=== PATIENT | male | born 1990 | race Caucasian/White ===

== ENCOUNTER 2017-02-18 10:34 | Emergency (ER) | payer BC ==
[~2017-02-18] VITALS: Ht 175.3 cm; Wt 70.5 kg
[~2017-02-18 10:34] MED LIST: BENZ1 PO; BUSP30TA PO; CITA-48 PO; CLON1 PO; INVE6TAB2 PO; STRA80CA PO; TRAZ100 PO
[2017-02-18 10:36] VITALS: BP 130/84; PULSE 106; RESP 16; TEMP 98; O2SAT 100
[2017-02-18 10:45] VITALS: BP 139/83; PULSE 91; RESP 17; O2SAT 99
[2017-02-18] MEDS ORDERED: SERO400T PO (10:53)
[2017-02-18] MEDS ORDERED: CLON1TAB PO (10:53)
[2017-02-18] MEDS ORDERED: BUSP30TA PO (10:53)
[2017-02-18] MEDS ORDERED: LUVOX (10:53)
--- NOTE | 2017-02-18 11:03 | PD ---
HPI Chief Complaint: Suicide Ideation/Attempt Time Seen by Provider: 10:40 Travel History International Travel<30 days: No Contact w/Intl Traveler<30days: No Traveled to known affect area: No History of Present Illness HPI The 26-year-old man who presents to the emergency department with increased depression and suicidal thoughts starting this morning. Headache fight with his dad apparently that sorted sugar everything. He may have also missed a dose of medicine last night. Patient is tearful and sad. Endorses suicidal thoughts but does state "I would never do that". Medical history significant for schizoaffective disorder and OCD as well as multiple psychotropic medications. No somatic complaints. Denies any recent illness or injury. History Past Medical History Narrative Medical Hypertension Arthritis Influenza Vaccination: No Social History Alcohol Use: No Tobacco Use: Yes (1 PPD) Allergies-Medications (Allergen,Severity, Reaction): Coded Allergies: No Known Allergies (Unverified , 05/05/16) Per pt. Reported Meds & Prescriptions Reported Meds & Active Scripts Active Reported Clonazepam 1 Mg Tab 1 Mg PO BID Seroquel (Quetiapine Fumarate) 400 Mg Tab 800 Mg PO HS [Luvox] 300 DAILY Buspirone (Buspirone HCl) 30 Mg Tab 30 Mg PO BID Review of Systems Except as stated in HPI: all other systems reviewed are Neg Physical Exam Narrative GENERAL: Well-appearing 26-year-old man, tearful and sad.. SKIN: Focused skin assessment warm/dry. HEAD: Atraumatic. Normocephalic. CARDIOVASCULAR: Regular rate and rhythm. No murmur appreciated. RESPIRATORY: No accessory muscle use. Clear to auscultation. Breath sounds equal bilaterally. GASTROINTESTINAL: Abdomen soft, non-tender, nondistended. Hepatic and splenic margins not palpable. MUSCULOSKELETAL: No obvious deformities. No clubbing. No cyanosis. No edema. NEUROLOGICAL: Awake and alert. No obvious cranial nerve deficits. Motor grossly within normal limits. Normal speech. PSYCHIATRIC: Tearful and sad. He endorses some suicidal thoughts. Data Data Last Documented VS Vital Signs Date Time Temp Pulse Resp B/P Pulse Ox O2 Delivery O2 Flow Rate FiO2 02/18/17 10:45 91 17 139/83 99 Room Air 02/18/17 10:36 98.0 Orders Complete Blood Count With Diff (02/18/17 10:56) Comprehensive Metabolic Panel (02/18/17 10:56) Psych Screen (02/18/17 10:56) Drug Screen, Random Urine (02/18/17 10:56) MDM Medical Decision Making Medical Screen Exam Complete: Yes Emergency Medical Condition: Yes Differential Diagnosis Stress reaction, adjustment disorder, schizoaffective disorder, other Narrative Course Medical decision making 26 old man presents emergency department complaining of increased depression and suicidal thoughts, history of schizoaffective disorder and OCD. He has no somatic complaints. No recent illness or injury. Patient is medically clear for psychiatric evaluation. Mental health screening discussed with the patient. Psychiatric screen ordered. Marco Calderon MD Feb 18, 2017 11:03
[2017-02-18 11:30] LABS: AUTOMATED NEUTROPHIL # 4.9 TH/MM3 (1.8-7.7); BASOPHIL % 0.4 % (0.0-2.0); EOSINOPHIL # 0.2 TH/MM3 (0-0.4); EOSINOPHIL % 2.1 % (0.0-4.0); HEMATOCRIT 50.3 % (39.0-51.0); HEMO FLAGS DIFF FINAL; LYMPH % 22.9 % (9.0-44.0); LYMPHOCYTE # 1.7 TH/MM3 (1.0-4.8); MEAN CELL VOLUME 90.4 FL (80.0-100.0); MEAN CORPUSCULAR HGB CONC 34.3 % (32.0-36.0); MONO % 8.6 % (0.0-8.0); PLATELET COUNT 174 TH/MM3 (150-450); RED BLOOD COUNT 5.56 MIL/MM3 (4.50-5.90); RED CELL DISTRIBUTION WIDTH 13.1 % (11.6-17.2); WHITE BLOOD COUNT 7.4 TH/MM3 (4.0-11.0)
[2017-02-18 11:42] LABS: AMPHETAMINE, URINE NEG (NEG); BARBITURATES, URINE NEG (NEG); COCAINE, URINE NEG (NEG)
[2017-02-18 11:51] LABS: ALT (GPT) 23 U/L (12-78); ANION GAP 6 MEQ/L (5-15); AST (GOT) 10 U/L (15-37); BICARBONATE 26.5 MEQ/L (21.0-32.0); BLOOD UREA NITROGEN 15 MG/DL (7-18); CHLORIDE 107 MEQ/L (98-107); GLOMERULAR FILTRATION RATE 82 ML/MIN (>89); POTASSIUM 4.2 MEQ/L (3.5-5.1); SODIUM (NA) 139 MEQ/L (136-145)
[2017-02-18 11:53] LABS: ALKALINE PHOSPHATASE 73 U/L (45-117); TOTAL BILIRUBIN ADULT 0.5 MG/DL (0.2-1.0)
[2017-02-18 14:21] VITALS: BP 116/67; PULSE 63; RESP 18; O2SAT 98
[2017-02-18] MEDS ORDERED: FLUV1CAP PO (14:34)
[2017-02-18 17:58] VITALS: BP 136/69; PULSE 68; RESP 18
--- NOTE | 2017-02-18 20:08 | PD ---
History of Present Illness Chief Complaint: Suicide Ideation/Attempt Time Seen by Provider: 17:15 Travel History International Travel<30 Days: No Contact w/Intl Traveler<30days: No Known affected area: No Legal Status Legal Status: Voluntary History of Present Illness: History of Present Illness HPI The 26-year-old male with a reported history of OCD and schizoaffective disorder who presents to the emergency department on a voluntary status with complaints of increased depression and suicidal thoughts starting this morning. He reports that he missed a dose of his nighttime medications which include Seroquel because he did not have enough money to pay for them. He asked his father to help him get his medications and during the argument he said " Fuck You" and allegedly stated that he was suicidal. The patient denies that he is feeling suicidal and is requesting to be discharged. Since being here he has had telephone contact with his father who has given him the money for his medications as well as has apologized to him according to the patient. The patient is alert and oriented. Speech is clear ,logical and coherent. He denies any hallucinations, denies any suicidal or homicidal ideation. He reports medication compliance. PFSH Past Medical History Anxiety: Yes Depression: Yes Psychiatric: Yes (OCD) Immunizations Current: Yes Schizophrenia: Yes Influenza Vaccination: No Past Surgical History Other Surgery: Yes (right second toe broken) Psychiatric History Psychiatric History Hx Psychiatric Treatment: Per pt, he is seeing someone named with [facility]. First hospitalization at age 16 years History of Inpatient Treatment: Yes Guns or firearms in home: No Social History Single male. Lives with his father.parents are . Works at [employer] at [employer] Hx Alcohol Use: No Hx Tobacco Use: Yes (1 PPD) Hx Substance Use: No (Pt denies.) Hx of Substance Use Treatment: No Family Psychiatric History Negative Allergies-Medications (Allergen,Severity, Reaction): Coded Allergies: No Known Allergies (Unverified , 02/18/17) Per pt; Per [facility] [phone] Reported Meds & Prescriptions Reported Meds & Active Scripts Active Reported Fluvoxamine ER (Fluvoxamine Maleate) 100 Mg Caper 300 Mg PO DAILY Clonazepam 1 Mg Tab 1 Mg PO BID Seroquel (Quetiapine Fumarate) 400 Mg Tab 800 Mg PO HS Buspirone (Buspirone HCl) 30 Mg Tab 30 Mg PO BID Review of Systems Except as stated in HPI: all other systems reviewed are Neg Exam Alert: Yes [place]: Person (ox4) Mood: Calm Affect: Appropriate Speech: Clear, Logical Eye Contact: Normal Memory Intact: Comment (No impairemtn) Hallucinations: Other (Negative) Delusions: No Suicidal: Ideation (Deneis any) Homicidal: Ideation (Deneis any) Insight/Judgement Fair. Not impaired. MDM Medical Decision Making Medical Record Reviewed: Yes Assessment/Plan The 26-year-old male with a reported history of OCD and schizoaffective disorder who presents to the emergency department on a voluntary status with complaints of increased depression and suicidal thoughts starting this morning. He attributes to having missed a dose of nighttime medication. He also attributes to being angry with his father over a comment his father made. Since being here he has contacted his father and his mother and feels safe to be discharged home. he is denying any suicidal intent or homicidal intent. He does feel anxious about going to work tomorrow and i will provide him with an excuse fro tomorrowthat will give him time to get back on his medication before he returns to work. Psychoeducation provided. Cleared for discharge Orders Complete Blood Count With Diff (02/18/17 10:56) Comprehensive Metabolic Panel (02/18/17 10:56) Psych Screen (02/18/17 10:56) Drug Screen, Random Urine (02/18/17 10:56) Diet Regular Basic (02/18/17 Lunch) Results Vital Signs Date Time Temp Pulse Resp B/P Pulse Ox O2 Delivery O2 Flow Rate FiO2 02/18/17 17:58 68 18 136/69 Room Air 02/18/17 14:21 63 18 116/67 98 Room Air 02/18/17 10:45 91 17 139/83 99 Room Air 02/18/17 10:36 98.0 106 16 130/84 100 Laboratory Tests Test 02/18/17 11:06 White Blood Count 7.4 Red Blood Count 5.56 Hemoglobin 17.2 Hematocrit 50.3 Mean Corpuscular Volume 90.4 Mean Corpuscular Hemoglobin 31.0 Mean Corpuscular Hemoglobin 34.3 Concent Red Cell Distribution Width 13.1 Platelet Count 174 Mean Platelet Volume 8.5 Neutrophils (%) (Auto) 66.0 Lymphocytes (%) (Auto) 22.9 Monocytes (%) (Auto) 8.6 Eosinophils (%) (Auto) 2.1 Basophils (%) (Auto) 0.4 Neutrophils # (Auto) 4.9 Lymphocytes # (Auto) 1.7 Monocytes # (Auto) 0.6 Eosinophils # (Auto) 0.2 Basophils # (Auto) 0.0 CBC Comment DIFF FINAL Differential Comment Sodium Level 139 Potassium Level 4.2 Chloride Level 107 Carbon Dioxide Level 26.5 Anion Gap 6 Blood Urea Nitrogen 15 Creatinine 1.10 Estimat Glomerular Filtration 82 Rate Random Glucose 104 Calcium Level 9.0 Total Bilirubin 0.5 Aspartate Amino Transf 10 (AST/SGOT) Alanine Aminotransferase 23 (ALT/SGPT) Alkaline Phosphatase 73 Total Protein 7.6 Albumin 4.2 Urine Opiates Screen NEG Urine Barbiturates Screen NEG Urine Amphetamines Screen NEG Urine Benzodiazepines Screen NEG Urine Cocaine Screen NEG Urine Cannabinoids Screen NEG Diagnosis Primary Impression: Adjustment disorder Departure Forms: Work Release, Enter return to work date: Feb 20, 2017 Tests/Procedures Patient Instructions: General Instructions, Stress (ED), Medical Clearance for Psychiatric Care (ED) Additional Instructions: Follow up with outpatient primary care provider. Follow up with outpatient psychiatric provider. Return to ER if symptoms worsen. Med/ Other Pt Specific Info: No Change to Meds Disposition: 01 DISCHARGE HOME Condition: Stable Problem Qualifiers Primary Impression: Adjustment disorder Qualified Code: F43.23 - Adjustment disorder with mixed anxiety and depressed mood Debbie Rodriguez Feb 18, 2017 20:08
== END 2017-02-18 18:46 | disposition home or self-care (01) ==
LOC: NEPE 10:34 → NEPJ 18:46
DX: F43.20 Adjustment disorder, unspecified (principal); F42.9 Obsessive-compulsive disorder, unspecified; F25.9 Schizoaffective disorder, unspecified; F41.9 Anxiety disorder, unspecified; I10 Essential (primary) hypertension; M13.88 Other specified arthritis, other site; F17.200 Nicotine dependence, unspecified, uncomplicated; Z79.899 Other long term (current) drug therapy
CPT/HCPCS: 80053; 80307; 85025; 99284

== ENCOUNTER 2017-11-21 22:44 | Inpatient (IN) | payer BC ==
[~2017-11-21] VITALS: Ht 175.3 cm; Wt 67.9 kg
[~2017-11-21 22:44] MED LIST changes: -BENZ1 PO; -CITA-48 PO; -CLON1 PO; +CLON1TAB PO; +FLUV1CAP PO; -INVE6TAB2 PO; +SERO400T PO; -STRA80CA PO; -TRAZ100 PO
[2017-11-21 22:48] VITALS: BP 124/74; PULSE 81; RESP 18; TEMP 97.7; O2SAT 98
--- NOTE | 2017-11-22 00:38 | PD ---
HPI Chief Complaint: Suicide Ideation/Attempt Time Seen by Provider: 00:17 Travel History International Travel<30 days: No Contact w/Intl Traveler<30days: No Traveled to known affect area: No History of Present Illness HPI 27-year-old white male presents emergency department on a voluntary basis for psychological evaluation. He states that he has OCD and depression. Patient states that he merely needs to get some rest and sleep. He left work early today after having an argument with his girlfriend. He has an appointment tomorrow with his psychiatrist. Patient states that he merely needs rest. He denies suicidal homicidal ideation. A discussion with the nursing staff informs me that when he had presented to the ER he had informed the triage nurse that he was depressed and contemplating suicide. He had placed a noose around his neck and had planned on hanging himself. On direct questioning the patient does admit to this. He denies any toxic ingestions. He had recently changed psychiatrists is now seeing a new psychiatrist in [place]. Patient denies any recent medical complaints other than inability to sleep. Patient denies any drugs or alcohol. PFSH Past Medical History Narrative Medical OCD, anxiety, depression Anxiety: Yes Depression: Yes Diminished Hearing: No Psychiatric: Yes (OCD) Immunizations Current: Yes Schizophrenia: Yes Tetanus Vaccination: Unknown Influenza Vaccination: No Past Surgical History Other Surgery: Yes (right second toe broken) Social History Alcohol Use: No Tobacco Use: Yes (1 PPD) Substance Use: No (Pt denies.) Allergies-Medications (Allergen,Severity, Reaction): Coded Allergies: No Known Allergies (Unverified , 02/18/17) Per pt; Per [facility] [phone] Reported Meds & Prescriptions Reported Meds & Active Scripts Active Reported Fluvoxamine ER (Fluvoxamine Maleate) 100 Mg Caper 300 Mg PO DAILY Clonazepam 1 Mg Tab 1 Mg PO BID Seroquel (Quetiapine Fumarate) 400 Mg Tab 800 Mg PO HS Buspirone (Buspirone HCl) 30 Mg Tab 30 Mg PO BID Review of Systems General / Constitutional: No: Fever Eyes: No: Visual changes HENT: No: Headaches Cardiovascular: No: Chest Pain or Discomfort Respiratory: No: Shortness of Breath Gastrointestinal: No: Abdominal Pain Genitourinary: No: Dysuria Musculoskeletal: No: Pain Skin: No Rash Neurologic: No: Weakness Psychiatric: Positive: Depression, Suicidal Ideations, Mood Disorder, No: Anxiety, Disorder of Thought, Substance Abuse, Homicidal Ideation Endocrine: No: Polydipsia Hematologic/Lymphatic: No: Easy Bruising Physical Exam Narrative GENERAL: Well-nourished, well-developed patient. SKIN: Warm and dry. HEAD: Normocephalic and atraumatic. EYES: No scleral icterus. No injection or drainage. ENT: No nasal drainage noted. Mucous membranes pink. Airway patent. NECK: Supple, trachea midline. Moves head freely without obvious discomfort. CARDIOVASCULAR: Regular rate and rhythm without murmurs, gallops, or rubs. RESPIRATORY: Breath sounds equal bilaterally. No accessory muscle use. GASTROINTESTINAL: Abdomen soft, non-tender, nondistended. EXTREMITIES: No cyanosis or edema. BACK: Nontender without obvious deformity. No CVA tenderness. NEURO: Patient is alert and oriented. no sensorimotor deficits. Nonfocal. Normal speech. PSYCH: No delusions. No auditory or visual hallucinations. Data Data Last Documented VS Vital Signs Date Time Temp Pulse Resp B/P (MAP) Pulse Ox O2 Delivery O2 Flow Rate FiO2 11/21/17 22:48 97.7 81 18 124/74 (91) 98 Orders Orders Complete Blood Count With Diff (11/22/17 00:30) Comprehensive Metabolic Panel (11/22/17 00:30) Thyroid Stimulating Hormone (11/22/17 00:30) Psych Screen (11/22/17 00:30) Drug Screen, Random Urine (11/22/17 00:30) Alcohol (Ethanol) (11/22/17 00:30) Salicylates (Aspirin) (11/22/17 00:30) Tylenol (Acetaminophen) (11/22/17 00:30) MDM Medical Decision Making Medical Screen Exam Complete: Yes Emergency Medical Condition: Yes Medical Record Reviewed: Yes Differential Diagnosis MDM: High Differential diagnoses: Schizophrenia, schizoaffective disorder, bipolar, anxiety, depression, adjustment reaction, mood disorder NOS, ODD, depressive disorder NOS, dementia, dementia with agitation, psychosis NOS, substance induced mood disorder, DMDD, Asperger syndrome, infection,electrolyte abnormality, malingering. Narrative Course Mental health screening discussed with the patient. Psychiatric screen ordered. The patient is unable to determine his need for psychiatric evaluation. The patient has been placed under a [place] act due to his initial complaint of depression and thoughts of hanging himself. The patient has been medically cleared. This medical clearance for psychiatric admission Diagnosis Primary Impression: Medical clearance for psychiatric admission Condition: Stable Alex Walker November 22, 2017 00:38
[2017-11-22 01:04] LABS: AUTOMATED NEUTROPHIL # 5.2 TH/MM3 (1.8-7.7); BASOPHIL # 0.1 TH/MM3 (0-0.2); BASOPHIL % 0.7 % (0.0-2.0); EOSINOPHIL # 0.1 TH/MM3 (0-0.4); EOSINOPHIL % 1.6 % (0.0-4.0); HEMATOCRIT 46.3 % (39.0-51.0); HEMOGLOBIN 15.9 GM/DL (13.0-17.0); LYMPH % 24.6 % (9.0-44.0); MEAN CELL VOLUME 91.9 FL (80.0-100.0); MEAN CORPUSCULAR HEMOGLOBIN 31.5 PG (27.0-34.0); MEAN CORPUSCULAR HGB CONC 34.3 % (32.0-36.0); MEAN PLATELET VOLUME 8.5 FL (7.0-11.0); MONO % 8.1 % (0.0-8.0); MONOCYTE # 0.7 TH/MM3 (0-0.9); PLATELET COUNT 196 TH/MM3 (150-450); RED BLOOD COUNT 5.03 MIL/MM3 (4.50-5.90); RED CELL DISTRIBUTION WIDTH 13.7 % (11.6-17.2); WHITE BLOOD COUNT 8.1 TH/MM3 (4.0-11.0)
[2017-11-22 01:11] LABS: ALBUMIN 3.7 GM/DL (3.4-5.0); ALT (GPT) 27 U/L (12-78); AST (GOT) 16 U/L (15-37); BICARBONATE 28.1 MEQ/L (21.0-32.0); BLOOD UREA NITROGEN 10 MG/DL (7-18); CALCIUM 8.4 MG/DL (8.5-10.1); CHLORIDE 107 MEQ/L (98-107); GLOMERULAR FILTRATION RATE 103 ML/MIN (>89); GLUCOSE,RANDOM 83 MG/DL (74-106); SODIUM (NA) 141 MEQ/L (136-145)
[2017-11-22 01:21] LABS: ACETAMINOPHEN LESS THAN 2.0 MCG/ML (10.0-30.0); ALKALINE PHOSPHATASE 62 U/L (45-117); TOTAL BILIRUBIN ADULT 0.5 MG/DL (0.2-1.0); TOTAL PROTEIN 6.5 GM/DL (6.4-8.2)
[2017-11-22 03:22] VITALS: BP 112/72; PULSE 52; RESP 16; O2SAT 99
[2017-11-22] MEDS ORDERED: LORazepam 0.5 MG TAB PO PRN (08:45)
[2017-11-22] MEDS ORDERED: ACETAMINOPHEN 325 MG TAB PO PRN (08:45)
[2017-11-22] MEDS ORDERED: LORazepam 2 MG/ML VIAL IM PRN ×2 (08:45)
[2017-11-22] MEDS ORDERED: ALUMINUM/MAGNESIUM/SIMETH 30 ML CUP PO PRN (08:45)
[2017-11-22] MEDS ORDERED: MAGNESIUM HYDROXIDE SUSP 30 ML CUP PO PRN (08:45)
[2017-11-22 10:17] VITALS: BP 112/62; PULSE 76; RESP 18; TEMP 97.8; O2SAT 96
[2017-11-22] MEDS: NICOTINE 21 MG/24 HR PATCH T-DERMAL SCH (11:50)
--- NOTE | 2017-11-22 12:38 | HHI.HP ---
Provisional Diagnosis Admission Date November 22, 2017 at 08:49 [place] I. OCD, schizoaffective disorder depressive type [place] II. Deferred [place] III. No significant medical history [place] IV. Interpersonal conflicts [place] V. 45 Certification of Person's Competence To Provide Express and Informed Consent I have personally examined Lizandro Hernandez , a person being served at [facility] on, November 22, 2017 12:23. Express and informed consent means consent voluntarily given in writing, by a competent person, after sufficient explanation and disclosure of the subject matter involved to enable the person to make a knowing and willful decision without any element of force, fraud, deceit, duress, or other form of constraint or coercion. This person is 18 years of age or older, is not now known to be incompetent to consent to treatment with a guardian advocate, and does not have a health care surrogate or proxy currently making medical treatment decisions. I have found this person to be one of the following: [] Competent to provide express and informed consent, as defined above, for voluntary admission to this facility and is competent to provide express and informed consent for treatment. He/she has the consistent capacity to make well reasoned, willful, and knowing decisions concerning his or her medical or mental health treatment. The person fully and consistently understands the purpose of the admission for examination/placement and is fully capable of personally exercising all rights assured under [place] Incompetent to provide express and informed consent to voluntary admission, and this is incompetent to provide express and informed consent to treatment. The person must be transferred to involuntary status and a petition for a guardian advocate filed with the Circuit Court. [x] Refusing to provide express and informed consent to voluntary admission but is competent to provide express and informed consent for treatment. The person must be discharged or transferred to involuntary status. Form shall be completed within 24 hours of a person's arrival at the receiving facility and filed in the clinical record of each person: 1. Admitted on a voluntary basis 2. Permitted to provide express and informed consent to his/her own treatment 3. Allowed to transfer from involuntary to voluntary status 4. Prior to permitting a person to consent to his or her own treatment after having been previously found incompetent to consent to treatment. History of Present Illness Capacity: Has Capacity HPI The patient is a 27-year-old man, domiciled in [place] with his father and stepmother, is single, employed in [employer], with an extensive psychiatric history of OCD, bipolar disorder, depression, 6-7 hospitalizations, last hospitalization was about 3 years ago here at [facility], documentation was reviewed, he has some ER visits since then, he is on Anafranil 225 mg, Geodon 60 mg, clonazepam 1 mg 3 times daily, no significant medical history, presents emergency department on a voluntary basis for psychological evaluation. He states that he has OCD and depression. Patient states that he merely needs to get some rest and sleep. He left work early today after having an argument with his girlfriend. He has an appointment tomorrow with his psychiatrist. Patient states that he merely needs rest. He denies suicidal homicidal ideation. A discussion with the nursing staff informs me that when he had presented to the ER he had informed the triage nurse that he was depressed and contemplating suicide. He had placed a noose around his neck and had planned on hanging himself. On direct questioning the patient does admit to this. He denies any toxic ingestions. He had recently changed psychiatrists is now seeing a new psychiatrist in [place]. On psychiatric evaluation today patient is calm and cooperative. Patient reports that he has been feeling very depressed since he had an argument with his girlfriend and his girlfriend left him. Patient says that he feels like a failure, has been feeling guilty, very stressed, and having intrusive thoughts of hanging himself. The patient reports that he has a "harm OCD" and when images and thoughts come to his mind, he is unable to stop them. He states that since yesterday he has been having the image of harming himself or throwing himself in front of a car.. Patient reports that he does not want to , that he does not have any suicidal ideation or intentions "but, I am very afraid of my thoughts, and I am a very excessive person". Patient reports that he is fully compliant with medications , reports good response and no side effects. Patient seems to be quite preoccupied about restarting his clonazepam. He denies the use of illegal drugs and alcohol. Review of Systems Constitutional: DENIES: Diaphoretic episodes, Fatigue, Fever, Weight gain, Weight loss, Chills, Dizziness, Change in appetite, Night Sweats Endocrine: DENIES: Heat/cold intolerance, Polydipsia, Polyuria, Polyphagia Eyes: DENIES: Blurred vision, Diplopia, Eye inflammation, Eye pain, Vision loss , Photosensitivity, Double Vision Ears, nose, mouth, throat: DENIES: Tinnitus, Hearing loss, Vertigo, Nasal discharge, Oral lesions, Throat pain, Hoarseness, Ear Pain, Running Nose, Epistaxis, Sinus Pain, Toothache, Odynophagia Respiratory: DENIES: Apneas, Cough, Snoring, Wheezing, Hemoptysis, Sputum production, Shortness of breath Cardiovascular: DENIES: Chest pain, Palpitations, Syncope, Dyspnea on Exertion , PND, Lower Extremity Edema, Orthopnea, Claudication Gastrointestinal: DENIES: Abdominal pain, Black stools, Bloody stools, Constipation, Diarrhea, Nausea, Vomiting, Difficulty Swallowing, Anorexia Genitourinary: DENIES: Sexual dysfunction, Urinary frequency, Urinary incontinence, Urgency, Hematuria, Dysuria, Nocturia, Penile Discharge, Testicular Pain, Testicular Swelling Musculoskeletal: DENIES: Joint pain, Muscle aches, Stiffness, Joint Swelling, Back pain, Neck pain Integumentary: DENIES: Abnormal pigmentation, Nail changes, Pruritus, Rash Hematologic/lymphatic: DENIES: Bruising, Lymphadenopathy Immunologic/allergic: DENIES: Eczema, Urticaria Neurologic: DENIES: Abnormal gait, Headache, Localized weakness, Paresthesias, Seizures, Speech Problems, Tremor, Poor Balance Psychiatric: COMPLAINS OF: Anxiety, Depression, Suicidal Ideation Past Psych History Violence risk - self (6 mos) Increased Substance Abuse History Drugs/Alcohol past 12 months Patient denies the use of alcohol and illegal drugs Past Family Social History Coded Allergies: No Known Allergies (Unverified Allergy, Unknown, 11/22/17) Per pt; Per [facility] [phone] Discontinued Reported Medications Fluvoxamine ER (Fluvoxamine ER) 100 Mg Caper, 300 MG PO DAILY, CAP 0 Refills 02/18/17 Clonazepam (Clonazepam) 1 Mg Tab, 1 MG PO BID, TAB 0 Refills 02/18/17 Quetiapine (Seroquel) 400 Mg Tab, 800 MG PO HS, TAB 0 Refills 02/18/17 Buspirone (Buspirone) 30 Mg Tab, 30 MG PO BID for Anxiety, TAB 0 Refills 02/18/17 Current Medications Medications (Trade) Dose Ordered Sig/Morgan Route Start Time Stop Time Status Last Admin (Ativan) 1 mg Q6H PRN PO 11/22/17 08:45 (Ativan Inj) 1 mg Q6H PRN IM 11/22/17 08:45 (Tylenol) 650 mg Q4H PRN PO 11/22/17 08:45 (Milk Of Magnesia Liq) 30 ml DAILY PRN PO 11/22/17 08:45 (Mag-Al Plus Susp Liq) 30 ml Q6H PRN PO 11/22/17 08:45 (Habitrol 21 Mg Patch.24 Hr) 1 patch DAILY T-DERMAL 11/22/17 09:00 11/22/17 11:50 Miscellaneous Information 1 HS T-DERMAL 11/22/17 21:00 Family Psych History Grandfather is a schizophrenic Social History Patient was born and raised in 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 Patient's Strengths (min. 2) Family support, outpatient psychiatric Physical Exam Patient has no tremors, no withdrawal symptoms, no EPS, no stiffness, no psychomotor agitation or retardation, no gait disturbance Vital Signs Vital Signs Date Time Temp Pulse Resp B/P (MAP) Pulse Ox O2 Delivery O2 Flow Rate FiO2 11/22/17 10:17 97.8 76 18 112/62 (79) 96 11/22/17 03:22 Room Air Lab Results Test 11/22/17 00:30 11/22/17 07:50 White Blood Count 8.1 TH/MM3 Red Blood Count 5.03 MIL/MM3 Hemoglobin 15.9 GM/DL Hematocrit 46.3 % Mean Corpuscular Volume 91.9 FL Mean Corpuscular Hemoglobin 31.5 PG Mean Corpuscular Hemoglobin Concent 34.3 % Red Cell Distribution Width 13.7 % Platelet Count 196 TH/MM3 Mean Platelet Volume 8.5 FL Neutrophils (%) (Auto) 65.0 % Lymphocytes (%) (Auto) 24.6 % Monocytes (%) (Auto) 8.1 % Eosinophils (%) (Auto) 1.6 % Basophils (%) (Auto) 0.7 % Neutrophils # (Auto) 5.2 TH/MM3 Lymphocytes # (Auto) 2.0 TH/MM3 Monocytes # (Auto) 0.7 TH/MM3 Eosinophils # (Auto) 0.1 TH/MM3 Basophils # (Auto) 0.1 TH/MM3 CBC Comment DIFF FINAL Differential Comment Blood Urea Nitrogen 10 MG/DL Creatinine 0.90 MG/DL Random Glucose 83 MG/DL Total Protein 6.5 GM/DL Albumin 3.7 GM/DL Calcium Level 8.4 MG/DL Alkaline Phosphatase 62 U/L Aspartate Amino Transf (AST/SGOT) 16 U/L Alanine Aminotransferase (ALT/SGPT) 27 U/L Total Bilirubin 0.5 MG/DL Sodium Level 141 MEQ/L Potassium Level 4.1 MEQ/L Chloride Level 107 MEQ/L Carbon Dioxide Level 28.1 MEQ/L Anion Gap 6 MEQ/L Estimat Glomerular Filtration Rate 103 ML/MIN Thyroid Stimulating Hormone 3rd Gen 1.310 uIU/ML Salicylates Level 1.8 MG/DL Acetaminophen Level LESS THAN 2.0 MCG/ML Ethyl Alcohol Level LESS THAN 3 MG/DL Urine Opiates Screen NEG Urine Barbiturates Screen NEG Urine Amphetamines Screen NEG Urine Benzodiazepines Screen NEG Urine Cocaine Screen NEG Urine Cannabinoids Screen NEG Mental Status Examination Appearance: Appropriate Consciousness: Alert Orientation: x4 Motor Activity: Normal gait Speech: Unremarkable Language: Adequate Fund of Knowledge: Adequate Attention and Concentration: Adequate Memory: Unremarkable Mood: Sad, Irritable Thought Process & Associations: Intact Thought Content: Appropriate, Obsessions Hallucination Type: None Delusion Type: None Suicidal Ideation: Yes Suicidal Plan: No Suicidal Intention: No Homicidal Ideation: No Homicidal Plan: No Homicidal Intention: No Insight: Poor Judgment: Poor Assessment & Plan Problem List: (1) Schizoaffective disorder ICD Codes: F25.9 - Schizoaffective disorder, unspecified Status: Acute Assessment & Plan: On psychiatric evaluation today the patient presents emotionally vulnerable, he reports symptomatology of depression consisting on sadness, guiltiness, poor sleep, constant preoccupations, intrusive thoughts of committing suicide after he broke up with his girlfriend. The patient has stated his arrival to the ER that he was having ideas of hanging himself. Now he denies active suicidal ideation, but he does report that he has intrusive thoughts of hanging or throwing himself in front of a car. Patient has an extensive history of OCD, schizoaffective disorder, multiple psychiatric hospitalizations, suicide attempts. Patient has an increased risk of danger to self. He will be hospitalized in psychiatry for stabilization and safety. I will restart his psychotropics including Anafranil 225 mg, clonazepam 0.5 mg twice daily, Geodon 40 mg twice daily. Collateral information from family members still needed to complete psychiatric assessment. Current presentation seems to be secondary to major depressive disorder, but an underlying personality disorder and also conscious simulation she will be explored carefully. Extensive support, motivation and psychoeducation provided. Transfer patient to 2600 unit. Assessment & Plan Estimated LOS: days Problem Qualifiers (1) Schizoaffective disorder: Qualified Codes: F25.1 - Schizoaffective disorder, depressive type Herman Cardenas MD November 22, 2017 12:38
[2017-11-22] MEDS: LORazepam 1 MG TAB PO PRN (12:56)
[2017-11-22] MEDS: clonazePAM 0.5 MG TAB PO SCH ×2 (14:16→21:26)
[2017-11-22] MEDS: ZIPRASIDONE HCL 40 MG CAP PO SCH (17:48)
[2017-11-22 18:14] VITALS: BP 105/66; PULSE 88; RESP 18; TEMP 97.8; O2SAT 95
[2017-11-22] MEDS: REMOVE OLD NICODERM (NICOTINE) PATCH T-DERMAL SCH (21:00)
[2017-11-23] MEDS: LORazepam 1 MG TAB PO PRN ×2 (02:10→09:04)
[2017-11-23] MEDS: clonazePAM 0.5 MG TAB PO SCH ×3 (05:21→21:49)
[2017-11-23 05:35] VITALS: BP 129/66; PULSE 57; RESP 16; TEMP 97.8; O2SAT 98
[2017-11-23] MEDS: NICOTINE 21 MG/24 HR PATCH T-DERMAL SCH (08:14)
[2017-11-23] MEDS: ZIPRASIDONE HCL 40 MG CAP PO SCH ×2 (08:15→17:02)
[2017-11-23 08:50] LABS: BICARBONATE 32.2 MEQ/L (21.0-32.0); BLOOD UREA NITROGEN 13 MG/DL (7-18); CALCIUM 9.6 MG/DL (8.5-10.1); CHLORIDE 102 MEQ/L (98-107); CHOLESTEROL 127 MG/DL (120-200); CHOLESTEROL/ HDL RATIO 2.16 RATIO; CREATININE 1.01 MG/DL (0.60-1.30); GLOMERULAR FILTRATION RATE 90 ML/MIN (>89); GLUCOSE,RANDOM 84 MG/DL (74-106); HDL CHOLESTEROL 58.6 MG/DL (40.0-60.0); LDL CHOLESTEROL 22 MG/DL (0-99); SODIUM (NA) 140 MEQ/L (136-145); TRIGLYCERIDES 232 MG/DL (42-150)
[2017-11-23] MEDS ORDERED: PILL SPLITTER OTHER PRN (15:00)
[2017-11-23] MEDS: busPIRone HCL 5 MG TAB PO SCH ×2 (15:03→21:14)
[2017-11-23 17:02] VITALS: BP 98/58; PULSE 106; RESP 17; TEMP 97.2; O2SAT 99
--- NOTE | 2017-11-23 17:23 | PD.PSY.CON ---
Provisional Diagnosis Admission Date November 22, 2017 at 08:49 [place] I. OCD, schizoaffective disorder depressive type [place] II. Deferred [place] III. No significant medical history [place] IV. Interpersonal conflicts [place] V. 45 History of Present Illness Service Psychiatry Consult Requested By Dr. Cardenas Reason for Consult Second opinion Primary Care Physician No Primary Care Physician HPI The patient is a 27-year-old man, domiciled in [place] with his father and stepmother, is single, employed in [employer], with an extensive psychiatric history of OCD, bipolar disorder, depression, 6-7 hospitalizations, last hospitalization was about 3 years ago here at [facility], documentation was reviewed, he has some ER visits since then, he is on Anafranil 225 mg, Geodon 60 mg, clonazepam 1 mg 3 times daily, no significant medical history, presents emergency department on a voluntary basis for psychological evaluation. He states that he has OCD and depression. Patient states that he merely needs to get some rest and sleep. He left work early today after having an argument with his girlfriend. He has an appointment tomorrow with his psychiatrist. Patient states that he merely needs rest. He denies suicidal homicidal ideation. A discussion with the nursing staff informs me that when he had presented to the ER he had informed the triage nurse that he was depressed and contemplating suicide. He had placed a noose around his neck and had planned on hanging himself. On direct questioning the patient does admit to this. He denies any toxic ingestions. He had recently changed psychiatrists is now seeing a new psychiatrist in [place]. On psychiatric evaluation today patient is calm and cooperative. Patient reports that he has been feeling very depressed since he had an argument with his girlfriend and his girlfriend left him. Patient says that he feels like a failure, has been feeling guilty, very stressed, and having intrusive thoughts of hanging himself. The patient reports that he has a "harm OCD" and when images and thoughts come to his mind, he is unable to stop them. He states that since yesterday he has been having the image of harming himself or throwing himself in front of a car.. Patient reports that he does not want to , that he does not have any suicidal ideation or intentions "but, I am very afraid of my thoughts, and I am a very excessive person". Patient reports that he is fully compliant with medications , reports good response and no side effects. Patient seems to be quite preoccupied about restarting his clonazepam. He denies the use of illegal drugs and alcohol. 11/23/17 - Second opinion Patient is a 27-year-old man, domiciled with parents, single, unemployed, with a past psychiatric history of bipolar disorder, OCD, depression , with multiple psychiatric admissions, who came into the ED voluntarily endorsing worsening depressive symptoms along with suicide ideation in the context of recent argument with girlfriend he was admitted to the inpatient psychiatry unit for further evaluation and management. Patient was found heavily on the unit noted B, cooperative. Patient states that he had been having worsening depressive symptoms along with suicide ideations recently due to psychosocial stressors which include difficulty with relationship with his girlfriend, financial difficulties, relationship discord as well with his biological mother whom he states has "cut me off" for the past 2-3 weeks now. Patient stated depression as 8 out of 10 (10 being its worst), having had DTs disturbed sleep recently, along with suicide ideations last night. Patient reports having felt better when he was taking the buspirone and would like to resume his medication and requesting to discontinue the clonazepam. Patient reports taking clomipramine to 25 mg daily for OCD which his mother will bring in to the hospital so he can continue taking this. Patient states he is followed by outpatient psychiatrist in [facility] which she has started TMS for depression. Past Family Social History Coded Allergies: No Known Allergies (Unverified Allergy, Unknown, 11/22/17) Per pt; Per [facility] [phone] Discontinued Reported Medications Fluvoxamine ER (Fluvoxamine ER) 100 Mg Caper, 300 MG PO DAILY, CAP 0 Refills 02/18/17 Clonazepam (Clonazepam) 1 Mg Tab, 1 MG PO BID, TAB 0 Refills 02/18/17 Quetiapine (Seroquel) 400 Mg Tab, 800 MG PO HS, TAB 0 Refills 02/18/17 Buspirone (Buspirone) 30 Mg Tab, 30 MG PO BID for Anxiety, TAB 0 Refills 02/18/17 Current Medications Medications (Trade) Dose Ordered Sig/Morgan Route Start Time Stop Time Status Last Admin (Ativan) 1 mg Q6H PRN PO 11/22/17 08:45 11/23/17 09:04 (Ativan Inj) 1 mg Q6H PRN IM 11/22/17 08:45 (Tylenol) 650 mg Q4H PRN PO 11/22/17 08:45 11/22/17 19:02 (Milk Of Magnesia Liq) 30 ml DAILY PRN PO 11/22/17 08:45 (Mag-Al Plus Susp Liq) 30 ml Q6H PRN PO 11/22/17 08:45 (Habitrol 21 Mg Patch.24 Hr) 1 patch DAILY T-DERMAL 11/22/17 09:00 11/23/17 08:14 Miscellaneous Information 1 HS T-DERMAL 11/22/17 21:00 11/22/17 21:00 (KlonoPIN) 0.5 mg Q8HR PO 11/22/17 14:00 11/23/17 14:52 (Geodon) 40 mg BIDPC PO 11/22/17 18:00 11/23/17 17:02 (Buspar) 7.5 mg Q12HR PO 11/23/17 14:45 11/23/17 15:03 (Benadryl) 50 mg HS PO 11/23/17 21:00 (Pill Splitter) 1 ea UNSCH PRN OTHER 11/23/17 15:00 Patient's Strengths (min. 2) Family support, outpatient psychiatric Physical Exam Vital Signs Vital Signs Date Time Temp Pulse Resp B/P (MAP) Pulse Ox O2 Delivery O2 Flow Rate FiO2 11/23/17 17:02 97.2 106 17 98/58 (71) 99 11/22/17 03:22 Room Air Lab Results Test 11/23/17 07:43 Blood Urea Nitrogen 13 MG/DL Creatinine 1.01 MG/DL Random Glucose 84 MG/DL Calcium Level 9.6 MG/DL Sodium Level 140 MEQ/L Potassium Level 4.2 MEQ/L Chloride Level 102 MEQ/L Carbon Dioxide Level 32.2 MEQ/L Anion Gap 6 MEQ/L Estimat Glomerular Filtration Rate 90 ML/MIN Triglycerides Level 232 MG/DL Cholesterol Level 127 MG/DL LDL Cholesterol 22 MG/DL HDL Cholesterol 58.6 MG/DL Cholesterol/HDL Ratio 2.16 RATIO Mental Status Examination Appearance: Appropriate Consciousness: Alert Orientation: x4 Motor Activity: Normal gait Speech: Unremarkable Language: Adequate Fund of Knowledge: Adequate Attention and Concentration: Adequate Memory: Unremarkable Mood: Sad, Irritable Affect: Sad Thought Process & Associations: Intact Thought Content: Appropriate, Obsessions Hallucination Type: None Delusion Type: None Suicidal Ideation: Yes Suicidal Plan: No Suicidal Intention: No Homicidal Ideation: No Homicidal Plan: No Homicidal Intention: No Insight: Poor Judgment: Poor Assessment & Plan Problem List: (1) Schizoaffective disorder ICD Codes: F25.9 - Schizoaffective disorder, unspecified Status: Acute Assessment & Plan I have seen and examined this patient, reviewed the documentation, discussed personally with Dr. Cardenas, and I agree and concur with his assessment and plan. Consult appreciated. Patient this time will continue with Geodon 40 mg p.o. twice daily, we will start BuSpar 5 mg p.o. 3 times daily, we will continue clonazepam 0.5 mg 3 times daily with plan to taper, Benadryl 50 mg at bedtime for sleep disturbance , patient to resume clomipramine 225 mg after patient's mother has brought in the medications are verified by pharmacy as this medication is currently not on hospital formulary. Continue monitor mood and behavior. Discharge planning in progress. Discharge Planning Patient to return back to parents residence when psychiatrically stable Problem Qualifiers (1) Schizoaffective disorder: Qualified Codes: F25.1 - Schizoaffective disorder, depressive type Huber Henning MD November 23, 2017 17:23
[2017-11-23] MEDS: REMOVE OLD NICODERM (NICOTINE) PATCH T-DERMAL SCH (21:00)
[2017-11-23] MEDS: diphenhydrAMINE HCL 50 MG CAP PO SCH (21:12)
[2017-11-24] MEDS: LORazepam 1 MG TAB PO PRN ×3 (03:09→19:28)
[2017-11-24 05:35] VITALS: BP 130/64; PULSE 58; RESP 16; TEMP 97.7; O2SAT 100
[2017-11-24] MEDS: clonazePAM 0.5 MG TAB PO SCH ×3 (05:52→17:02)
[2017-11-24] MEDS: ZIPRASIDONE HCL 40 MG CAP PO SCH (09:00)
[2017-11-24] MEDS: NICOTINE 21 MG/24 HR PATCH T-DERMAL SCH (09:00)
[2017-11-24] MEDS: busPIRone HCL 5 MG TAB PO SCH ×2 (09:01→21:20)
[2017-11-24 16:47] VITALS: BP 126/81; PULSE 97; RESP 17; TEMP 97.2; O2SAT 99
[2017-11-24] MEDS: ZIPRASIDONE HCL 60 MG CAP PO SCH (17:02)
--- NOTE | 2017-11-24 17:41 | HHI.PYPN ---
Subjective Remarks Patient seen for follow-up, chart reviewed. Discussion with nursing staff reported that the patient was upset that his medications have not been adjusted as he had been taking them prior to his admission. Patient was found lying on hospital bed, calm and cooperative. Patient states feeing "up and down" thinking about his psychosocial stressors. He reports haiving slept better last night but continues with some difficulty. He deneis SI at this time, denies any perceptual disturbances. Review of Systems Except as stated in HPI: all other systems reviewed are Neg Mental Status Examination Appearance: Appropriate Consciousness: Alert Orientation: x4 Motor Activity: Normal gait Speech: Unremarkable Language: Adequate Fund of Knowledge: Adequate Attention and Concentration: Adequate Memory: Unremarkable Mood: Sad, Irritable (less so today) Affect: Sad Thought Process & Associations: Intact Thought Content: Appropriate, Obsessions Hallucination Type: None Delusion Type: None Suicidal Ideation: Yes Suicidal Plan: No Suicidal Intention: No Homicidal Ideation: No Homicidal Plan: No Homicidal Intention: No Insight: Poor Judgment: Poor Results Vitals/IOs Vital Signs Date Time Temp Pulse Resp B/P (MAP) Pulse Ox O2 Delivery O2 Flow Rate FiO2 11/24/17 16:47 97.2 97 17 126/81 (96) 99 11/22/17 03:22 Room Air Assessment & Plan Problem List: (1) Schizoaffective disorder ICD Codes: F25.9 - Schizoaffective disorder, unspecified Status: Acute Assessment & Plan Patient continues with depressed mood and irritability butdenies any suicidal ideations. Will continue to titrate geodon to 60mg BID, buspirone to 15mg BID and taper clonazepam. Continue to monitor mood and behavior. Discharge planning in progress. Justification for Cont. Inpt. At risk for further decompensation at lower level of care. Discharge Planning Return back to residence once psychiatrically clear. Problem Qualifiers (1) Schizoaffective disorder: Qualified Codes: F25.1 - Schizoaffective disorder, depressive type Huber Henning MD November 24, 2017 17:41
[2017-11-24] MEDS: REMOVE OLD NICODERM (NICOTINE) PATCH T-DERMAL SCH (21:00)
[2017-11-24] MEDS: CLOMIPRAMINE 75 MG PO SCH (21:18)
[2017-11-24] MEDS: diphenhydrAMINE HCL 50 MG CAP PO SCH (21:19)
[2017-11-25 05:42] VITALS: BP 111/57; PULSE 90; RESP 17; TEMP 97.9; O2SAT 98
[2017-11-25] MEDS: ZIPRASIDONE HCL 60 MG CAP PO SCH ×2 (08:36→17:54)
[2017-11-25] MEDS: busPIRone HCL 5 MG TAB PO SCH ×2 (08:36→21:20)
[2017-11-25] MEDS: LORazepam 1 MG TAB PO PRN (08:36)
[2017-11-25] MEDS: clonazePAM 0.5 MG TAB PO SCH ×2 (08:36→21:20)
[2017-11-25] MEDS: NICOTINE 21 MG/24 HR PATCH T-DERMAL SCH (08:37)
[2017-11-25] MEDS: CLOMIPRAMINE 75 MG PO SCH ×2 (09:00→21:18)
--- NOTE | 2017-11-25 12:22 | HHI.PYPN ---
Subjective Remarks Patient was seen and case discussed with nursing. Patient is interested in tapering off the Klonopin and that is ordered. Behaving well on the unit. Largely seclusive to self. Poor eye contact. Compliant with his Geodon. No psychotic symptoms were elicited today. Somewhat minimizes history Mental Status Examination Appearance: Appropriate Consciousness: Alert Orientation: x4 Motor Activity: Normal gait Speech: Unremarkable Language: Adequate Fund of Knowledge: Adequate Attention and Concentration: Adequate Memory: Unremarkable Mood: Sad, Irritable (less so today) Affect: Sad Thought Process & Associations: Intact Thought Content: Appropriate, Obsessions Hallucination Type: None Delusion Type: None Suicidal Ideation: Yes Suicidal Plan: No Suicidal Intention: No Homicidal Ideation: No Homicidal Plan: No Homicidal Intention: No Insight: Poor Judgment: Poor Results Vitals/IOs Vital Signs Date Time Temp Pulse Resp B/P (MAP) Pulse Ox O2 Delivery O2 Flow Rate FiO2 11/25/17 05:42 97.9 90 17 111/57 (75) 98 11/22/17 03:22 Room Air Intake and Output 11/25/17 11/25/17 11/26/17 08:00 16:00 00:00 Intake Total 480 ml Balance 480 ml Assessment & Plan Problem List: (1) Schizoaffective disorder ICD Codes: F25.9 - Schizoaffective disorder, unspecified Status: Acute Assessment & Plan Patient would decompensate in a less restrictive setting Justification for Cont. Inpt. Continue current treatment plan Problem Qualifiers (1) Schizoaffective disorder: Qualified Codes: F25.1 - Schizoaffective disorder, depressive type Issa Morataya DO November 25, 2017 12:22
[2017-11-25] MEDS: REMOVE OLD NICODERM (NICOTINE) PATCH T-DERMAL SCH (21:00)
[2017-11-25] MEDS: diphenhydrAMINE HCL 50 MG CAP PO SCH (21:19)
[2017-11-26] MEDS: LORazepam 1 MG TAB PO PRN (02:33)
[2017-11-26 05:50] VITALS: BP 110/77; PULSE 103; RESP 18; TEMP 98; O2SAT 100
[2017-11-26] MEDS: CLOMIPRAMINE 75 MG PO SCH ×2 (08:01→20:16)
[2017-11-26] MEDS: clonazePAM 0.5 MG TAB PO SCH ×2 (08:03→20:17)
[2017-11-26] MEDS: NICOTINE 21 MG/24 HR PATCH T-DERMAL SCH (08:03)
[2017-11-26] MEDS: ZIPRASIDONE HCL 60 MG CAP PO SCH ×2 (08:04→17:18)
[2017-11-26] MEDS: busPIRone HCL 5 MG TAB PO SCH ×2 (08:04→20:16)
--- NOTE | 2017-11-26 12:31 | HHI.PYPN ---
Subjective Remarks Patient was seen and case discussed with nursing. Patient interviewed in bed. Per nursing he has been behaving well. No anger or irritability, no outbursts. Patient has not had any visitors or phone calls. He denies any psychotic symptoms. Largely seclusive to self. Compliant with medications Mental Status Examination Appearance: Appropriate Consciousness: Alert Orientation: x4 Motor Activity: Normal gait Speech: Unremarkable Language: Adequate Fund of Knowledge: Adequate Attention and Concentration: Adequate Memory: Unremarkable Mood: Sad, Irritable (less so today) Affect: Sad Thought Process & Associations: Intact Thought Content: Appropriate, Obsessions Hallucination Type: None Delusion Type: None Suicidal Ideation: Yes Suicidal Plan: No Suicidal Intention: No Homicidal Ideation: No Homicidal Plan: No Homicidal Intention: No Insight: Poor Judgment: Poor Results Vitals/IOs Vital Signs Date Time Temp Pulse Resp B/P (MAP) Pulse Ox O2 Delivery O2 Flow Rate FiO2 11/26/17 05:50 98.0 103 18 110/77 (88) 100 Assessment & Plan Problem List: (1) Schizoaffective disorder ICD Codes: F25.9 - Schizoaffective disorder, unspecified Status: Acute Assessment & Plan Continue current treatment plan Justification for Cont. Inpt. Patient would decompensate in a less restrictive setting Problem Qualifiers (1) Schizoaffective disorder: Qualified Codes: F25.1 - Schizoaffective disorder, depressive type Issa Morataya DO November 26, 2017 12:31
[2017-11-26 18:00] VITALS: BP 128/74; PULSE 107; RESP 18; TEMP 97.7; O2SAT 98
[2017-11-26 18:01] VITALS: BP 128/74; PULSE 107; RESP 18; TEMP 97.7; O2SAT 98
[2017-11-26] MEDS: diphenhydrAMINE HCL 50 MG CAP PO SCH (20:16)
[2017-11-26] MEDS: REMOVE OLD NICODERM (NICOTINE) PATCH T-DERMAL SCH (21:00)
[2017-11-27] MEDS: LORazepam 1 MG TAB PO PRN (01:37)
[2017-11-27 06:19] VITALS: BP 131/82; PULSE 81; RESP 17; TEMP 97.5; O2SAT 99
[2017-11-27] MEDS: ZIPRASIDONE HCL 60 MG CAP PO SCH (08:16)
[2017-11-27] MEDS: NICOTINE 21 MG/24 HR PATCH T-DERMAL SCH (08:17)
[2017-11-27] MEDS: clonazePAM 0.5 MG TAB PO SCH (08:17)
[2017-11-27] MEDS: busPIRone HCL 5 MG TAB PO SCH (08:17)
[2017-11-27] MEDS: CLOMIPRAMINE 75 MG PO SCH (08:18)
[2017-11-27] MEDS ORDERED: GEOD60CA PO (11:43)
[2017-11-27] MEDS ORDERED: BUSP30TA PO (11:43)
[2017-11-27] MEDS ORDERED: DIPH50CA PO (11:44)
--- NOTE | 2017-11-27 11:47 | HHI.DS ---
Psychiatry Discharge Summary Inpatient Psychiatric care?: Yes Advance Directive: No Reason Not Provided: declined Mental Health AdvanceDirective: No Health Care Proxy: No Admission Admission Date November 22, 2017 at 08:49 Admission Diagnosis: (1) Schizoaffective disorder ICD Code: F25.9 - Schizoaffective disorder, unspecified Brief History The patient is a 27-year-old man, domiciled in [place] with his father and stepmother, is single, employed in [employer], with an extensive psychiatric history of OCD, bipolar disorder, depression, 6-7 hospitalizations, last hospitalization was about 3 years ago here at [facility], documentation was reviewed, he has some ER visits since then, he is on Anafranil 225 mg, Geodon 60 mg, clonazepam 1 mg 3 times daily, no significant medical history, presents emergency department on a voluntary basis for psychological evaluation. He states that he has OCD and depression. Patient states that he merely needs to get some rest and sleep. He left work early today after having an argument with his girlfriend. He has an appointment tomorrow with his psychiatrist. Patient states that he merely needs rest. He denies suicidal homicidal ideation. A discussion with the nursing staff informs me that when he had presented to the ER he had informed the triage nurse that he was depressed and contemplating suicide. He had placed a noose around his neck and had planned on hanging himself. On direct questioning the patient does admit to this. He denies any toxic ingestions. He had recently changed psychiatrists is now seeing a new psychiatrist in [place]. On psychiatric evaluation today patient is calm and cooperative. Patient reports that he has been feeling very depressed since he had an argument with his girlfriend and his girlfriend left him. Patient says that he feels like a failure, has been feeling guilty, very stressed, and having intrusive thoughts of hanging himself. The patient reports that he has a "harm OCD" and when images and thoughts come to his mind, he is unable to stop them. He states that since yesterday he has been having the image of harming himself or throwing himself in front of a car.. Patient reports that he does not want to , that he does not have any suicidal ideation or intentions "but, I am very afraid of my thoughts, and I am a very excessive person". Patient reports that he is fully compliant with medications , reports good response and no side effects. Patient seems to be quite preoccupied about restarting his clonazepam. He denies the use of illegal drugs and alcohol. 11/23/17 - Second opinion Patient is a 27-year-old man, domiciled with parents, single, unemployed, with a past psychiatric history of bipolar disorder, OCD, depression , with multiple psychiatric admissions, who came into the ED voluntarily endorsing worsening depressive symptoms along with suicide ideation in the context of recent argument with girlfriend he was admitted to the inpatient psychiatry unit for further evaluation and management. Patient was found heavily on the unit noted B, cooperative. Patient states that he had been having worsening depressive symptoms along with suicide ideations recently due to psychosocial stressors which include difficulty with relationship with his girlfriend, financial difficulties, relationship discord as well with his biological mother whom he states has "cut me off" for the past 2-3 weeks now. Patient stated depression as 8 out of 10 (10 being its worst), having had DTs disturbed sleep recently, along with suicide ideations last night. Patient reports having felt better when he was taking the buspirone and would like to resume his medication and requesting to discontinue the clonazepam. Patient reports taking clomipramine to 25 mg daily for OCD which his mother will bring in to the hospital so he can continue taking this. Patient states he is followed by outpatient psychiatrist in [facility] which she has started TMS for depression. Tobacco Use In Past 30 Days: Cigarettes But Not Daily Alcohol Use: Never Results Blood Pressure 131 / 82 Vital Signs Date Time Temp Pulse Resp B/P (MAP) Pulse Ox O2 Delivery O2 Flow Rate FiO2 11/27/17 06:19 97.5 81 17 131/82 (98) 99 Laboratory Results Test 11/23/17 07:43 Cholesterol Level 127 MG/DL (120-200) HDL Cholesterol 58.6 MG/DL (40.0-60.0) Hemoglobin A1c 5.0 % (4.3-6.0) LDL Cholesterol 22 MG/DL (0-99) Triglycerides Level 232 MG/DL (42-150) Medications Approp Antipsych med options 1 - Minimum of three failed multiple trials of monotherapy. 2 - Documented plan to taper to monotherapy due to previous use of multiple meds OR cross-taper in progress at [facility]. 3 - Documentation of augmentation of Clozapine. 4 - Justification other than those listed in allowable values 1-3, document here : Discharge Pt Condition on Discharge: Stable Discharge Disposition: Discharge Home Discharge Instructions Diet Instructions: As Tolerated, No Restrictions Activities you can perform: Regular-No Restrictions Mental Status Examination Appearance: Appropriate Consciousness: Alert Orientation: x4 Motor Activity: Normal gait Speech: Unremarkable Language: Adequate Fund of Knowledge: Adequate Attention and Concentration: Adequate Memory: Unremarkable Mood: Sad, Irritable (less so today) Affect: Sad Thought Process & Associations: Intact Thought Content: Appropriate, Obsessions Hallucination Type: None Delusion Type: None Suicidal Ideation: Yes Suicidal Plan: No Suicidal Intention: No Homicidal Ideation: No Homicidal Plan: No Homicidal Intention: No Insight: Poor Judgment: Poor Discharge/Advance Care Plan Health Problems: (1) Schizoaffective disorder Goals to promote your health * To prevent worsening of your condition and complications * To maintain your health at the optimal level Directions to meet your goals Take your medications as prescribed Follow your dietary instruction Follow activity as directed Keep your appointments as scheduled Take your immunizations and boosters as scheduled If your symptoms worsen call your PCP, if no PCP go to Urgent Care Center or Emergency Room For 24 questions related to your inpatient stay or results of tests pending at discharge, please contact Dr. Huber Henning at Smoking is Dangerous to Your Health. Avoid second hand smoking Problem Qualifiers (1) Schizoaffective disorder: Qualified Codes: F25.1 - Schizoaffective disorder, depressive type Huber Henning MD November 27, 2017 11:47
--- NOTE | 2017-11-27 12:33 | PD.TTN ---
Patient Problems 1. Discharge planning 2. Medication compliance 3. Knowledge deficit 4. Lack of coping skills Progress Toward Goals Provider Present: Dr. Gloria Henning Provider Input: Patient is doing well will discharge home. Nurse(s) Input: Patient had poor sleep last night. Medication complaint. No behavioral problems on unit Psychiatric Counselors Present: [facility]ier[facility] Psych Therapist Input: Patient will be discharged home. Will follow up with psychiatrist Dr. Juan C Cheema. Group Spec/RT/OT/[place] Present: MALOU Carr Group Spec/RT/OT/[place] Input: New patient needs to be assessed Cleo Gutierrez [facility] November 27, 2017 12:33
== END 2017-11-27 14:45 | disposition home or self-care (01) | DRG 885 ==
LOC: NEPD 22:44 → NEDA 11-22 08:49 → H260 11-22 10:00
PROVIDERS: ADMIT Student in an Organized Health Care Education/Training Program; ATTEND Student in an Organized Health Care Education/Training Program
DX: F25.1 Schizoaffective disorder, depressive type (principal); R45.851 Suicidal ideations; F31.9 Bipolar disorder, unspecified; F42.9 Obsessive-compulsive disorder, unspecified
CPT/HCPCS: 80048; 80053; 80061; 80307; 83036; 84443; 85025; Q0163

== ENCOUNTER 2017-12-09 01:30 | Emergency (ER) | payer BC ==
[~2017-12-09] VITALS: Ht 175.3 cm; Wt 66.9 kg
[~2017-12-09 01:30] MED LIST changes: -CLON1TAB PO; +DIPH50CA PO; -FLUV1CAP PO; +GEOD60CA PO; -SERO400T PO
[2017-12-09 01:36] VITALS: BP 129/60; PULSE 76; RESP 18; TEMP 97.6; O2SAT 98
[2017-12-09] MEDS ORDERED: ANAF50CA PO (01:45)
[2017-12-09] MEDS ORDERED: CLON2TAB PO (01:45)
[2017-12-09] MEDS ORDERED: BREX1TAB4 PO (01:45)
--- NOTE | 2017-12-09 01:48 | PD ---
HPI Chief Complaint: Injury Time Seen by Provider: 01:43 Travel History International Travel<30 days: No Contact w/Intl Traveler<30days: No Traveled to known affect area: No History of Present Illness HPI 27-year-old male presents to the emergency department for evaluation of right foot injury. Patient states 5 hours prior to arrival to the emergency department when he was angry wearing tennis shoes like foot where he kicked a tree. Patient subsequently noted pain in swelling to the right great toe and second toe. Patient reports he has had previous surgery on the right second toe. Due to pain and injury decided to come to the emergency room at this time to have an x-ray. Patient does not know his tetanus status. Patient did sustain some nail trauma to the right great toenail. Patient denies other injuries or concerns. Patient is taking no medications or applied ice to the foot for symptom relief and weightbearing worsens pain PFSH Past Medical History Narrative Medical Anxiety depression toe surgery tobacco use; nursing notes reviewed Autoimmune Disease: No Anxiety: Yes Depression: Yes Cancer: No Cardiovascular Problems: No Diabetes: No Diminished Hearing: No Endocrine: No Genitourinary: No Headaches: No Immune Disorder: No Musculoskeletal: No Neurologic: Yes Psychiatric: Yes (OCD, Bipolar, Depression) Reproductive: No Respiratory: No Immunizations Current: Yes Schizophrenia: Yes Seizures: No Thyroid Disease: No Past Surgical History AICD: No Arteriovenous Shunt: No Insulin Pump: No Joint Replacement: No Pacemaker: No Other Surgery: Yes (right second toe broken) Social History Alcohol Use: No Tobacco Use: Yes (1 PPD) Substance Use: No Allergies-Medications (Allergen,Severity, Reaction): Coded Allergies: No Known Allergies (Unverified Allergy, Unknown, 12/09/17) Per pt; Per [facility] [phone] Reported Meds & Prescriptions Reported Meds & Active Scripts Active Reported Rexulti (Brexpiprazole) 2 Mg Tab 2 Mg PO DAILY Anafranil (Clomipramine HCl) 50 Mg Cap 50 Mg PO DAILY Clonazepam 2 Mg Tab 2 Mg PO BID Review of Systems Except as stated in HPI: all other systems reviewed are Neg Physical Exam Narrative GENERAL: Well-developed well-nourished male no acute distress no respiratory distress SKIN: Warm and dry. MUSCULOSKELETAL: No cyanosis, or edema. Attention right foot right great toe and right second toe mild soft tissue swelling partial avulsion of the right great toenail with small amount of blood digit is neurovascular tendon intact with brisk capillary refill less than 2 seconds second toe evidence of previous surgical intervention with a well-healed surgical scar dorsal aspect of the right second toe capillary refill is brisk and less than 2 seconds mild soft tissue swelling partial small subungual hematoma. Data Data Last Documented VS Vital Signs Date Time Temp Pulse Resp B/P (MAP) Pulse Ox O2 Delivery O2 Flow Rate FiO2 12/09/17 02:28 12/09/17 01:36 97.6 76 18 98 Orders Orders Foot, Complete ([id number]) (12/09/17 ) Wound Care (12/09/17 01:43) Tetanus/Diphtheria Tox Adult (Tetanus/Di (12/09/17 02:00) Shoe Post Op (12/09/17 ) Ed Discharge Order (12/09/17 02:10) Shoe Cast (12/09/17 ) MDM Medical Decision Making Medical Screen Exam Complete: Yes Emergency Medical Condition: Yes Medical Record Reviewed: Yes Interpretation(s) Last Impressions Foot X-Ray 12/09/17 0000 Signed Impressions: CONCLUSION: No fracture or subluxation of the right foot. Differential Diagnosis Contusion fracture or subluxation subungual hematoma Narrative Course Patient with toe injury wound site cleansed with saline and dilute Betadine postop shoe applied imaging study ordered Imaging studies no evidence of fracture Patient informed of imaging results and stable for outpatient management Diagnosis Primary Impression: Injury of toe on right foot Qualified Codes: S99.921A - Unspecified injury of right foot, initial encounter Additional Impression: Subungual contusion of toenail of right foot Qualified Codes: S90.221A - Contusion of right lesser toe(s) with damage to nail, initial encounter Referrals: Primary Care Physician 2 days Patient Instructions: General Instructions Additional Instructions: Keep site clean and dry follow wound care instructions Apply topical antibiotic to affected area as needed Take ibuprofen/Advil/Motrin 600 mg as often as every 6-8 hours as needed for pain associated with inflammation Return to the emergency department for any concerns or change in condition Recommend wearing a postop shoe for next 24-48 hours for management of toe injuries Disposition: 01 DISCHARGE HOME Condition: Stable Amelia Moctezuma MD December 09, 2017 01:48
[2017-12-09] MEDS ORDERED: TETANUS/DIPHTHERIA TOXOID ADULT 0.5 ML VIAL IM ONE (02:00)
--- NOTE | 2017-12-09 02:01 | RADRPT ---
EXAM DATE: 12/09/2017 1:57 AM EDT AGE/SEX: 27 years / Male INDICATIONS: Right great toe and 2nd toe pain after patient kicked object tonight CLINICAL DATA: This is the patient's initial encounter. Patient reports that signs and symptoms have been present for 1 day and indicates a pain score of 7/10. MEDICAL/SURGICAL HISTORY: None. . Prior surgery to right 2nd digit COMPARISON: No prior [facility] exams available for comparison. FINDINGS: Bony structures are intact and in normal alignment. Osseous density is normal. Soft tissues are unre markable. No radiopaque foreign bodies seen. CONCLUSION: No fracture or subluxation of the right foot. Electronically signed by: Bon Vera MD 12/09/2017 1:59 AM EDT
== END 2017-12-09 02:28 | disposition home or self-care (01) ==
LOC: PHED 01:30
DX: S90.121A Contusion of right lesser toe(s) without damage to nail, initial encounter (principal); S91.201A Unspecified open wound of right great toe with damage to nail, initial encounter; W22.09XA Striking against other stationary object, initial encounter; F20.9 Schizophrenia, unspecified; F41.8 Other specified anxiety disorders; F42.9 Obsessive-compulsive disorder, unspecified; F31.9 Bipolar disorder, unspecified; F17.200 Nicotine dependence, unspecified, uncomplicated; Z23 Encounter for immunization
CPT/HCPCS: 73630; 90471; 90714; 99283; L3260